=== PATIENT | male | born 1970 | race Caucasian/White ===

== ENCOUNTER 2019-04-30 21:26 | Emergency (ER) | payer OTHER ==
[~2019-04-30] VITALS: Ht 175.3 cm; Wt 104.3 kg
[~2019-04-30 21:26] MED LIST: OMEPRAZOLE20 MG PO; VENTOLIN HFA18 GM INH; XARELTO20 MG PO
[2019-04-30] MEDS ORDERED: DULOXETINE HCL30 MG PO (21:39)
[2019-04-30] MEDS ORDERED: ENTRESTO 24 MG1 EACH PO (21:39)
[2019-04-30] MEDS ORDERED: AMIODARONE HCL200 MG PO (21:39)
[2019-04-30] MEDS ORDERED: ATORVASTATIN CA20 MG PO (21:40)
[2019-04-30] MEDS ORDERED: POTASSIUM CHLO20 ME1 PO (21:40)
[2019-04-30] MEDS ORDERED: TORSEMIDE10 MG PO (21:40)
[2019-04-30] MEDS ORDERED: TOPROL XL50 MG PO (21:40)
--- NOTE | 2019-05-01 16:20 | EKG ---
[facility] [address] [place] [address] Signed Atrial fibrillation with premature ventricular or aberrantly conducted complexes Left axis deviation Nonspecific intraventricular block Anterolateral infarct , age undetermined Abnormal ECG No previous ECGs available Confirmed by ALEXYS MEDINA DO ([id number]) on 05/01/2019 4:19:53 PM Electronically Signed By: ALEXYS MEDINA DO 05/01/19 1620 PATIENT NAME: BRENDA MCCLENDON Electrocardiogram DATE OF : 70 PHYSICIAN: ALEXYS MEDINA DO REPORT #: [id number] REPORT IS CONFIDENTIAL AND NOT TO BE RELEASED WITHOUT AUTHORIZATION
== END 2019-05-01 01:46 | disposition home or self-care (01) ==
LOC: ED 21:26
DX: R07.89 Other chest pain (principal); K21.9 Gastro-esophageal reflux disease without esophagitis; I48.91 Unspecified atrial fibrillation; Z86.73 Personal history of transient ischemic attack (TIA), and cerebral infarction without residual deficits; Z79.899 Other long term (current) drug therapy
CPT/HCPCS: 71045; 80053; 84484; 85025; 85379; 85610; 85730; 93005; 93010; 99285-25

== ENCOUNTER 2020-04-24 13:11 | Emergency (ER) | payer OTHER ==
[~2020-04-24] VITALS: Ht 175.3 cm; Wt 117.9 kg
[~2020-04-24 13:11] MED LIST changes: +AMIODARONE HCL200 MG PO; +ATORVASTATIN CA20 MG PO; +DULOXETINE HCL30 MG PO; +ENTRESTO 24 MG1 EACH PO; +POTASSIUM CHLO20 ME1 PO; +TOPROL XL50 MG PO; +TORSEMIDE10 MG PO
[2020-04-24] MEDS ORDERED: SPIRONOLACTONE25 MG PO (13:20)
--- NOTE | 2020-04-25 13:11 | EKG ---
[facility] [address] [place] [address] Signed Suspect unspecified pacemaker failure Ventricular-paced rhythm Abnormal ECG No previous ECGs available Confirmed by DAVE DEAN MD ([id number]) on 04/25/2020 1:11:35 PM Electronically Signed By: DAVE DEAN MD 04/25/20 1311 PATIENT NAME: BRENDA MCCLENDON Electrocardiogram DATE OF : 70 PHYSICIAN: DAVE DEAN MD REPORT #: [id number] REPORT IS CONFIDENTIAL AND NOT TO BE RELEASED WITHOUT AUTHORIZATION
== END 2020-04-24 17:55 | disposition home or self-care (01) ==
LOC: ED 13:11
DX: K29.70 Gastritis, unspecified, without bleeding (principal); I48.91 Unspecified atrial fibrillation; I11.0 Hypertensive heart disease with heart failure; I50.9 Heart failure, unspecified; I25.2 Old myocardial infarction; Z86.73 Personal history of transient ischemic attack (TIA), and cerebral infarction without residual deficits; Z79.899 Other long term (current) drug therapy
CPT/HCPCS: 71045; 74019; 80053; 83690; 83735; 84484; 85025; 85610; 93005; 93010; 99285-25

== ENCOUNTER 2023-01-08 10:23 | Emergency (ER) | payer MEDICARE ==
[~2023-01-08] VITALS: Ht 175.3 cm; Wt 117.9 kg
[~2023-01-08 10:23] MED LIST changes: +SPIRONOLACTONE25 MG PO
--- OUTSIDE RECORDS SUMMARY | 2023-01-08 10:26 | XMS ---
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 E.D. VISIT COUNT (12 MO.) [address] [place] [address] TOTAL 7 NOTE: Visits indicate total known visits. ED/C VISIT TRACKING (12 MO.) 01/08/2023 10:24 [facility] TYPE: Emergency COMPLAINT: - CHEST PAIN 10/15/2022 17:35 [facility] [place] TYPE: Emergency DIAGNOSES: - Fluid overload, unspecified - fluid retention, shortness of breath [facility] TYPE: Emergency DIAGNOSES: - Shortness of Breath 10/12/2022 13:30 [facility] [place] TYPE: Emergency DIAGNOSES: - Heart failure, unspecified - Localized edema - SHORTNESS OF BREATH 07/11/2022 17:54 [facility] [place] TYPE: Emergency DIAGNOSES: - Heart failure, unspecified - SOB COUGHING BLOOD - Acute bronchitis, unspecified 04/02/2022 12:36 [facility] TYPE: Emergency DIAGNOSES: - Chest Pain - Chest pain, unspecified - Shortness of breath - Shortness of Breath 01/24/2022 22:17 [facility] [place] TYPE: Emergency DIAGNOSES: - CHEST PAIN - Chronic systolic (congestive) heart failure INPATIENT VISIT TRACKING (12 MO.) No inpatient visits to display in this time frame [email or web address]
[2023-01-08] MEDS ORDERED: XARELTO20 MG PO ×2 (10:36→10:37)
== END 2023-01-08 12:54 | disposition home or self-care (01) ==
LOC: ED 10:23
DX: M54.50 Low back pain, unspecified (principal); K21.9 Gastro-esophageal reflux disease without esophagitis; I48.91 Unspecified atrial fibrillation; I25.2 Old myocardial infarction; I10 Essential (primary) hypertension; Z79.899 Other long term (current) drug therapy
CPT/HCPCS: 36415; 80053; 81001; 84484; 85025; 85060; 99283

== ENCOUNTER 2023-05-02 16:58 | Emergency (ER) | payer MEDICARE ==
[~2023-05-02] VITALS: Ht 175.3 cm; Wt 109.8 kg
--- OUTSIDE RECORDS SUMMARY | 2023-05-02 17:06 | XMS ---
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 E.D. VISIT COUNT (12 MO.) 3 [facility] 1 [facility] 1 [facility] 1 [facility] TOTAL [facility] NOTE: Visits indicate total known visits. ED/UCC VISIT TRACKING (12 MO.) 05/02/2023 16:59 [facility] TYPE: Emergency COMPLAINT: - ABD PAIN 03/01/2023 18:49 [facility] TYPE: Emergency DIAGNOSES: 97353. Heart Failure 34039. 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 TYPE: Emergency DIAGNOSES: - Shortness of Breath 10/12/2022 13:30 [facility] [place] TYPE: Emergency DIAGNOSES: - Heart failure, unspecified - Localized edema - SHORTNESS OF BREATH 07/11/2022 17:54 [facility] [place] TYPE: Emergency DIAGNOSES: - Acute bronchitis, unspecified - Heart failure, unspecified - SOB COUGHING BLOOD INPATIENT VISIT TRACKING (12 MO.) 04/06/2023 08:30 [facility] TYPE: General Medicine DIAGNOSES: 24270. Acute kidney failure, unspecified 34609. Chronic systolic (congestive) heart failure 31691. Depression, unspecified 20315. Gastro-esophageal reflux disease without esophagitis 50044. Heart failure, unspecified 42295. Other acute postprocedural pain 03/01/2023 18:49 [facility] TYPE: General Medicine DIAGNOSES: 92985. Heart failure, unspecified 02/14/2023 19:[address] [facility] [place] TYPE: Surgical Services DIAGNOSES: - Acute kidney failure, unspecified - Acute on chronic systolic (congestive) heart failure - Chronic atrial fibrillation, unspecified - Hepatorenal syndrome - Hyperkalemia [id number]
[2023-05-02] MEDS ORDERED: METOLAZONE2.5 MG PO (17:21)
[2023-05-02] MEDS ORDERED: OZEMPIC2 MG/0.75 SUB-Q (17:25)
[2023-05-02] MEDS ORDERED: DIGOXIN125 MCG PO (17:26)
[2023-05-02] MEDS ORDERED: JARDIANCE10 MG PO (17:27)
[2023-05-02] MEDS ORDERED: TORSEMIDE100 MG PO (17:28)
[2023-05-02] MEDS ORDERED: K-TAB ER20 MEQ PO (17:29)
[2023-05-02] MEDS ORDERED: TOPROL XL25 MG PO (17:30)
[2023-05-02 19:32] VITALS: BP 101/65
== END 2023-05-02 19:33 | disposition home or self-care (01) ==
LOC: ED 16:58
DX: S20.211A Contusion of right front wall of thorax, initial encounter (principal); X58.XXXA Exposure to other specified factors, initial encounter; I50.9 Heart failure, unspecified; I48.91 Unspecified atrial fibrillation; I25.2 Old myocardial infarction; K21.9 Gastro-esophageal reflux disease without esophagitis; Z79.01 Long term (current) use of anticoagulants; Z79.899 Other long term (current) drug therapy; Z95.0 Presence of cardiac pacemaker
CPT/HCPCS: 36415; 71101; 80053; 80162; 81003; 83690; 83880; 85025; 85060; 85610; 99283-25

== ENCOUNTER 2023-08-16 18:39 | Emergency (ER) | payer MEDICARE ==
[~2023-08-16] VITALS: Ht 175.3 cm; Wt 109.8 kg
[~2023-08-16 18:39] MED LIST changes: +DIGOXIN125 MCG PO; +JARDIANCE10 MG PO; +K-TAB ER20 MEQ PO; +METOLAZONE2.5 MG PO; +OZEMPIC2 MG/0.75 SUB-Q; +TOPROL XL25 MG PO; +TORSEMIDE100 MG PO
[2023-08-16 20:39] LABS: HEMATOCRIT 29.5 % (35.0-50.0); HEMOGLOBIN 9.7 g/dL (12.0-18.0); MCH 30.3 (27-36); MCHC 32.8 g/dl (30-36); MCV 92.4 fl (81-99); PLATELET COUNT 196 K/uL (140-440); RBC 3.19 M/ul (4.3-5.7); RDW 17.4 (10.5-15.0)
[2023-08-16 20:48] LABS: BANDS, MANUAL DIFF 2; EOSINOPHILS, MANUAL DIFF 2; LYMPHOCYTES, MANUAL DIFF 13; MONOCYTES, MANUAL DIFF 4; NEUTROPHILS, MANUAL DIFF 79
[2023-08-16 20:49] LABS: ALBUMIN 3.3 g/dL (3.4-5.0); ALBUMIN/GLOBULIN RATIO 0.77 (1.1-2.4); ANION GAP 15.9 (7-21); BILIRUBIN, TOTAL 0.8 ng/dL (0.2-1.0); BUN/CREATININE RATIO 15.78 (6.0-28.6); CALCIUM 8.8 mg/dL (8.5-10.1); CREATININE, SERUM 2.47 mg/dL (0.70-1.30); MAGNESIUM 1.8 mg/dL (1.8-2.4); POTASSIUM 3.9 mmol/L (3.5-5.1); PROTEIN, TOTAL 7.6 g/dL (6.4-8.2)
[2023-08-16 22:45] VITALS: BP 97/61
--- NOTE | 2023-08-17 20:25 | EKG ---
[facility] [address] [facility] [place] [address] Signed Ventricular-paced rhythm Abnormal ECG When compared with ECG of 07-JUL-2023 16:42, Electronic ventricular pacemaker has replaced Electronic atrial pacemaker Confirmed by Kelsi Miller MD () on 08/17/2023 8:25:27 PM Electronically Signed By: KELSI MILLER MD 08/17/232024 PATIENT NAME: BRENDA MCCLENDON Electrocardiogram DATE OF : 70 PHYSICIAN: KELSI MILLER MD REPORT #: [id number] REPORT IS CONFIDENTIAL AND NOT TO BE RELEASED WITHOUT AUTHORIZATION
== END 2023-08-16 22:45 | disposition home or self-care (01) ==
LOC: ED 18:39
PROVIDERS: Emergency Medicine
DX: R42 Dizziness and giddiness (principal); D72.829 Elevated white blood cell count, unspecified; I48.91 Unspecified atrial fibrillation; I50.9 Heart failure, unspecified; I42.9 Cardiomyopathy, unspecified; Z95.810 Presence of automatic (implantable) cardiac defibrillator; Z79.899 Other long term (current) drug therapy; Z79.01 Long term (current) use of anticoagulants
CPT/HCPCS: 36415; 71045; 80053; 83735; 84484; 85025; 99284-25